=== PATIENT | male | born 1965 | race Two or more races ===

== ENCOUNTER 2020-07-22 10:37 | Emergency (ER) | payer BC, OTHER ==
[~2020-07-22] VITALS: Ht 180.3 cm; Wt 99.8 kg
[2020-07-22 12:27] LABS: Urine Bacteria NONE SEEN /hpf (None Seen); Urine Blood Negative /uL (Negative); Urine Specific Gravity 1.046 (1.001-1.035); Urine WBC 1 /hpf (0 - 3)
[2020-07-22 12:31] LABS: Basophils # (auto) 0 10 ^3/uL (0-0.2); Basophils % (auto) 0.4 % (0.0-2.0); Eosinophils # (auto) 0 10 ^3/uL (0-0.8); Eosinophils % (auto) 0.7 % (0.0-7.0); Hematocrit 49.4 % (41.0-53.0); Hemoglobin 16.6 g/dL (13.5-17.5); Lymphocytes # (auto) 1.7 10 ^3/uL (0.4-5.4); Lymphocytes % (auto) 25.2 % (10.0-50.0); Mean Corpuscular Hemoglobin 31.1 pg (28.0-32.0); Mean Corpuscular Hgb Conc. 33.6 g/dL (32.0-36.0); Mean Corpuscular Volume 92.6 fL (80.0-100.0); Monocytes # (auto) 0.5 10 ^3/uL (0-1.3); Monocytes % (auto) 6.9 % (0.0-12.0); Neutrophils # (auto) 4.4 10 ^3/uL (1.6-8.6); Neutrophils % (auto) 66.8 % (37.0-80.0); Nucleated Red Blood Cells % 0.1 %; Platelet Count (auto) 164 10^3/uL (140-450); Red Blood Cells 5.33 10^6/uL (4.5-5.90); Red Cell Distribution Width 13.5 % (11.8-14.3); White Blood Cell 6.7 10^3/uL (4.4-10.8)
[2020-07-22 12:35] LABS: Albumin 4.2 g/dL (3.4-5.0); Calcium 9.4 mg/dL (8.5-10.1); Potassium 4.6 mmol/L (3.5-5.1)
[2020-07-22 12:39] LABS: Bilirubin, Total 0.8 mg/dL (0.2-1.0); Total Protein 8.5 g/dL (6.4-8.2)
[2020-07-22 13:20] VITALS: BP 145/86
[2020-07-22] MEDS ORDERED: MECLIZINE HCL 25 MG TAB PO ONE (13:45)
== END 2020-07-22 14:00 | disposition home or self-care (01) ==
LOC: ER 10:37
DX: R42 Dizziness and giddiness (principal); R55 Syncope and collapse; G23.8 Other specified degenerative diseases of basal ganglia; E11.9 Type 2 diabetes mellitus without complications; I10 Essential (primary) hypertension
CPT/HCPCS: 36415; 70450; 80053; 81001; 82962; 84443; 85025; 93005; 99285; J8597

== ENCOUNTER 2021-06-17 07:55 | Inpatient (IN) | payer BC ==
[~2021-06-17] VITALS: Ht 180.3 cm; Wt 94.9 kg
[2021-06-17] VITALS (7 sets, daily range): BP systolic 114–126; BP diastolic 65–80
[2021-06-17] MEDS ORDERED: CHOLECALCIFEROL (VITD3) 2,000 UNIT CAP/TAB PO ONE (08:15)
[2021-06-17] MEDS ORDERED: ACETAMINOPHEN 500 MG TAB PO ONE (08:15)
[2021-06-17] MEDS ORDERED: ZINC SULFATE 220mg CAP or TAB PO ONE (08:15)
[2021-06-17] MEDS ORDERED: methylPREDNISolone SOD SUCC 125 MG/2 ML VL IV ONE (08:15)
[2021-06-17] MEDS ORDERED: ASCORBIC ACID 500 MG TAB PO ONE (08:15)
[2021-06-17] MEDS ORDERED: AZITHROMYCIN 500MG/ 250ML 250 ML IV ONE (08:30)
[2021-06-17 08:37] LABS: Basophils # (auto) 0 10 ^3/uL (0-0.2); Basophils % (auto) 0.5 % (0.0-2.0); Eosinophils # (auto) 0 10 ^3/uL (0-0.8); Eosinophils % (auto) 0.1 % (0.0-7.0); Hematocrit 41.5 % (41.0-53.0); Hemoglobin 14.6 g/dL (13.5-17.5); Lymphocytes # (auto) 1.1 10 ^3/uL (0.4-5.4); Lymphocytes % (auto) 24.4 % (10.0-50.0); Mean Corpuscular Hemoglobin 31.9 pg (28.0-32.0); Mean Corpuscular Hgb Conc. 35.2 g/dL (32.0-36.0); Mean Corpuscular Volume 90.8 fL (80.0-100.0); Monocytes # (auto) 0.4 10 ^3/uL (0-1.3); Monocytes % (auto) 7.7 % (0.0-12.0); Neutrophils # (auto) 3.1 10 ^3/uL (1.6-8.6); Neutrophils % (auto) 67.3 % (37.0-80.0); Nucleated Red Blood Cells % 0.2 %; Red Blood Cells 4.58 10^6/uL (4.5-5.90); Red Cell Distribution Width 13.3 % (11.8-14.3); White Blood Cell 4.6 10^3/uL (4.4-10.8)
[2021-06-17 09:01] LABS: Albumin 3.6 g/dL (3.4-5.0); BUN/Creatinine Ratio 16.7; Calcium 8.3 mg/dL (8.5-10.1); Potassium 3.8 mmol/L (3.5-5.1)
[2021-06-17 09:04] LABS: Bilirubin, Total 0.8 mg/dL (0.2-1.0); Total Protein 7.9 g/dL (6.4-8.2)
[2021-06-17] MEDS ORDERED: IOHEXOL 350 MG/ML 100ML IJ ONE (09:04)
[2021-06-17 09:06] LABS: Lactic Acid w/Reflex 2.1 mmol/L (0.4-2.0)
[2021-06-17] MEDS ORDERED: ACETAMINOPHEN 500 MG TAB PO PRN (11:30)
[2021-06-17] MEDS ORDERED: NITROGLYCERIN 0.4 MG SL TAB SL PRN (11:30)
[2021-06-17] MEDS ORDERED: MORPHINE SULFATE INJECTION 2 MG/ML SYRG IV PRN (11:30)
[2021-06-17] MEDS ORDERED: hydrALAZINE HCL 20 MG/ML VL IV PRN (11:45)
[2021-06-17] MEDS ORDERED: KETOROLAC TROMETH 30 MG/ML 1ML VIAL IV ONE (11:45)
[2021-06-17 12:35] LABS: Thyroid Stimulating Hormone 1.12 uIU/mL (0.358-3.74)
[2021-06-17] MEDS ORDERED: SITA50TA PO (15:14)
[2021-06-17] MEDS ORDERED: EMPA1TAB PO (15:14)
[2021-06-17] MEDS ORDERED: ATEN-60 PO (15:14)
[2021-06-17] MEDS ORDERED: LOSA25TA38 PO (15:14)
[2021-06-17] MEDS: IVERMECTIN 3 MG TAB PO SCH (15:59)
[2021-06-17] MEDS: BUDESONIDE (INHALATION) 180 MCG IH IN SCH (19:36)
[2021-06-17] MEDS: ALBUTEROL SULF HFA 90MCG INH 200DOSE IN PRN (19:36)
[2021-06-17] MEDS: ENOXAPARIN SOD 40 MG/0.4 ML SYRINGE SC SCH (21:25)
[2021-06-18 05:00] VITALS: BP 132/85
[2021-06-18 07:24] LABS: Basophils # (auto) 0 10 ^3/uL (0-0.2); Basophils % (auto) 0.2 % (0.0-2.0); Eosinophils # (auto) 0 10 ^3/uL (0-0.8); Hematocrit 41.6 % (41.0-53.0); Hemoglobin 14.9 g/dL (13.5-17.5); Lymphocytes # (auto) 1.2 10 ^3/uL (0.4-5.4); Lymphocytes % (auto) 18.6 % (10.0-50.0); Mean Corpuscular Hemoglobin 32.3 pg (28.0-32.0); Mean Corpuscular Hgb Conc. 35.7 g/dL (32.0-36.0); Mean Corpuscular Volume 90.2 fL (80.0-100.0); Monocytes # (auto) 0.5 10 ^3/uL (0-1.3); Monocytes % (auto) 6.8 % (0.0-12.0); Neutrophils # (auto) 4.9 10 ^3/uL (1.6-8.6); Neutrophils % (auto) 74.4 % (37.0-80.0); Nucleated Red Blood Cells % 0.1 %; Red Blood Cells 4.61 10^6/uL (4.5-5.90); Red Cell Distribution Width 13.3 % (11.8-14.3); White Blood Cell 6.7 10^3/uL (4.4-10.8)
[2021-06-18 07:27] LABS: Albumin 3.2 g/dL (3.4-5.0); BUN/Creatinine Ratio 31.9; Calcium 8.6 mg/dL (8.5-10.1); Potassium 4.4 mmol/L (3.5-5.1)
[2021-06-18 07:31] LABS: Total Protein 8.1 g/dL (6.4-8.2)
[2021-06-18] MEDS: ALBUTEROL SULF HFA 90MCG INH 200DOSE IN PRN ×2 (07:42→20:22)
[2021-06-18] MEDS: BUDESONIDE (INHALATION) 180 MCG IH IN SCH ×2 (07:42→20:22)
[2021-06-18 09:00] VITALS: BP 132/74
[2021-06-18] MEDS ORDERED: AZITHROMYCIN 500MG/ 250ML 250 ML IV SCH (10:00)
[2021-06-18] MEDS: DexAMETHasone SOD PHOS 10MG/1ML VIAL INJ IV SCH (10:39)
[2021-06-18] MEDS: ZINC SULFATE 220mg CAP or TAB PO SCH (10:40)
[2021-06-18] MEDS: ASCORBIC ACID 1,000 MG TAB PO SCH (10:40)
[2021-06-18] MEDS: ENOXAPARIN SOD 40 MG/0.4 ML SYRINGE SC SCH ×2 (10:40→21:48)
[2021-06-18] MEDS: CHOLECALCIFEROL (VITD3) 2,000 UNIT CAP/TAB PO SCH (10:40)
[2021-06-18] MEDS: IVERMECTIN 3 MG TAB PO SCH (10:40)
[2021-06-18 13:00] VITALS: BP 117/72
[2021-06-18] MEDS ORDERED: DEXTROSE (50%) 50ML SYRG IV PRN (13:15)
[2021-06-18] MEDS ORDERED: FUROSEMIDE 20 MG/2 ML VIAL IV ONE (13:15)
[2021-06-18] MEDS: DOXYCYCLINE 100MG/250ML 250 ML IV SCH (15:01)
[2021-06-18] MEDS: ACETAMINOPHEN 500 MG TAB PO PRN ×2 (15:02→23:58)
[2021-06-18] MEDS: ACCU-CHEK COMFORT CURVE STRIP VI SCH ×2 (16:36→21:47)
[2021-06-18] MEDS: InsuLIN REG 1unit/0.01ml Soln (100units/ml) SC SCH ×2 (16:38→21:49)
[2021-06-18 17:00] VITALS: BP 122/72
[2021-06-18 21:00] VITALS: BP 122/73
[2021-06-18] MEDS: INSULIN LANTUS (GLARGINE) 1 /0.01ml (100units/ml) SC SCH (21:48)
[2021-06-19] MEDS: DOXYCYCLINE 100MG/250ML 250 ML IV SCH ×3 (01:52→21:20)
[2021-06-19 05:00] VITALS: BP 116/74
[2021-06-19] MEDS: ACCU-CHEK COMFORT CURVE STRIP VI SCH ×4 (06:24→21:22)
[2021-06-19] MEDS: InsuLIN REG 1unit/0.01ml Soln (100units/ml) SC SCH ×4 (06:26→21:24)
[2021-06-19 06:30] LABS: Potassium 3.8 mmol/L (3.5-5.1)
[2021-06-19] MEDS: ACETAMINOPHEN 500 MG TAB PO PRN ×3 (06:33→21:41)
[2021-06-19 06:43] LABS: Albumin 3.2 g/dL (3.4-5.0); BUN/Creatinine Ratio 34.1; Bilirubin, Total 0.9 mg/dL (0.2-1.0); CRP High Sensitivity 3.2 mg/dL (< 0.3); Calcium 8.5 mg/dL (8.5-10.1); Magnesium 2.5 mg/dL (1.6-2.6); Total Protein 7.4 g/dL (6.4-8.2)
[2021-06-19] MEDS: BUDESONIDE (INHALATION) 180 MCG IH IN SCH ×2 (07:56→21:40)
[2021-06-19] MEDS: ALBUTEROL SULF HFA 90MCG INH 200DOSE IN PRN ×3 (07:56→21:39)
[2021-06-19 08:53] VITALS: BP 137/74
[2021-06-19] MEDS ORDERED: REMDESIVIR PER PHARMACY 0 ML IV SCH ×2 (09:30→11:30)
[2021-06-19] MEDS: FUROSEMIDE 20 MG/2 ML VIAL IV SCH (10:26)
[2021-06-19] MEDS: DexAMETHasone SOD PHOS 10MG/1ML VIAL INJ IV SCH (10:26)
[2021-06-19] MEDS: IVERMECTIN 3 MG TAB PO SCH (10:27)
[2021-06-19] MEDS: ASCORBIC ACID 1,000 MG TAB PO SCH (10:27)
[2021-06-19] MEDS: ZINC SULFATE 220mg CAP or TAB PO SCH (10:27)
[2021-06-19] MEDS: CHOLECALCIFEROL (VITD3) 2,000 UNIT CAP/TAB PO SCH (10:27)
[2021-06-19] MEDS: ENOXAPARIN SOD 40 MG/0.4 ML SYRINGE SC SCH ×2 (10:29→21:22)
[2021-06-19 12:55] VITALS: BP 129/80
[2021-06-19] MEDS ORDERED: REMDESIVIR 200 MG in NS 210ml LOADING DOSE ADULT IV ONE (13:00)
[2021-06-19 17:00] VITALS: BP 117/72
[2021-06-19] MEDS ORDERED: ALPR0.5T PO (19:19)
[2021-06-19] MEDS: INSULIN LANTUS (GLARGINE) 1 /0.01ml (100units/ml) SC SCH (21:21)
[2021-06-19] MEDS: guaiFENesin-DM 100/10mg/5ml SYR PO PRN (21:24)
[2021-06-19 22:00] VITALS: BP 117/73
[2021-06-20 05:00] VITALS: BP 125/70
[2021-06-20] MEDS: guaiFENesin-DM 100/10mg/5ml SYR PO PRN ×4 (05:50→21:11)
[2021-06-20] MEDS: InsuLIN REG 1unit/0.01ml Soln (100units/ml) SC SCH ×4 (06:00→21:20)
[2021-06-20] MEDS: ACCU-CHEK COMFORT CURVE STRIP VI SCH ×4 (06:00→21:18)
[2021-06-20] MEDS: BUDESONIDE (INHALATION) 180 MCG IH IN SCH ×2 (07:24→22:32)
[2021-06-20] MEDS: ALBUTEROL SULF HFA 90MCG INH 200DOSE IN PRN ×2 (07:24→22:33)
[2021-06-20 08:50] VITALS: BP 129/78
[2021-06-20] MEDS: FUROSEMIDE 20 MG/2 ML VIAL IV SCH (08:57)
[2021-06-20] MEDS: DexAMETHasone SOD PHOS 10MG/1ML VIAL INJ IV SCH (08:57)
[2021-06-20] MEDS: ENOXAPARIN SOD 40 MG/0.4 ML SYRINGE SC SCH ×2 (08:58→21:18)
[2021-06-20] MEDS: ZINC SULFATE 220mg CAP or TAB PO SCH (08:58)
[2021-06-20] MEDS: ASCORBIC ACID 1,000 MG TAB PO SCH (08:58)
[2021-06-20] MEDS: CHOLECALCIFEROL (VITD3) 2,000 UNIT CAP/TAB PO SCH (08:58)
[2021-06-20] MEDS: DOXYCYCLINE 100MG/250ML 250 ML IV SCH ×2 (10:15→21:17)
[2021-06-20] MEDS: IVERMECTIN 3 MG TAB PO SCH (10:15)
[2021-06-20] MEDS: POTASSIUM CHL 10 Meq TABLET PO SCH (11:34)
[2021-06-20] MEDS: TOCILIZUMAB 400 MG in SODIUM CHL 0.9% 80 ML IV SCH (12:48)
[2021-06-20 13:00] VITALS: BP 140/76
[2021-06-20 13:36] VITALS: BP 140/76
[2021-06-20] MEDS: REMDESIVIR 100mg 100 MG in SODIUM CHL 0.9% 230 ML IV SCH (15:01)
[2021-06-20 17:00] VITALS: BP 130/75
[2021-06-20] MEDS: INSULIN LANTUS (GLARGINE) 1 /0.01ml (100units/ml) SC SCH (21:19)
[2021-06-20 22:00] VITALS: BP 125/77
[2021-06-21 05:00] VITALS: BP 128/74
[2021-06-21] MEDS: ACCU-CHEK COMFORT CURVE STRIP VI SCH ×4 (06:24→21:45)
[2021-06-21] MEDS: InsuLIN REG 1unit/0.01ml Soln (100units/ml) SC SCH ×4 (06:25→22:08)
[2021-06-21] MEDS: guaiFENesin-DM 100/10mg/5ml SYR PO PRN ×5 (06:37→22:12)
[2021-06-21 07:06] LABS: Potassium 3.6 mmol/L (3.5-5.1)
[2021-06-21 07:14] LABS: Albumin 2.8 g/dL (3.4-5.0); BUN/Creatinine Ratio 52.2; Bilirubin, Total 1.2 mg/dL (0.2-1.0); Calcium 8.9 mg/dL (8.5-10.1); Total Protein 7.7 g/dL (6.4-8.2)
[2021-06-21] MEDS: ALBUTEROL SULF HFA 90MCG INH 200DOSE IN PRN ×2 (07:25→22:01)
[2021-06-21] MEDS: BUDESONIDE (INHALATION) 180 MCG IH IN SCH ×2 (07:25→22:01)
[2021-06-21 08:15] VITALS: BP 121/78
[2021-06-21 09:00] VITALS: BP 121/78
[2021-06-21] MEDS: ENOXAPARIN SOD 40 MG/0.4 ML SYRINGE SC SCH ×2 (10:00→21:56)
[2021-06-21] MEDS: DOXYCYCLINE 100MG/250ML 250 ML IV SCH ×2 (10:03→21:55)
[2021-06-21] MEDS: ZINC SULFATE 220mg CAP or TAB PO SCH (10:03)
[2021-06-21] MEDS: IVERMECTIN 3 MG TAB PO SCH (10:03)
[2021-06-21] MEDS: POTASSIUM CHL 10 Meq TABLET PO SCH (10:03)
[2021-06-21] MEDS: DexAMETHasone SOD PHOS 10MG/1ML VIAL INJ IV SCH (10:03)
[2021-06-21] MEDS: FUROSEMIDE 20 MG/2 ML VIAL IV SCH (10:03)
[2021-06-21] MEDS: ASCORBIC ACID 1,000 MG TAB PO SCH (10:04)
[2021-06-21] MEDS: CHOLECALCIFEROL (VITD3) 2,000 UNIT CAP/TAB PO SCH (10:04)
[2021-06-21] MEDS: TOCILIZUMAB 400 MG in SODIUM CHL 0.9% 80 ML IV SCH (11:58)
[2021-06-21 12:47] VITALS: BP 119/73
[2021-06-21] MEDS: REMDESIVIR 100mg 100 MG in SODIUM CHL 0.9% 230 ML IV SCH (15:00)
[2021-06-21 16:40] VITALS: BP 118/76
[2021-06-21 22:00] VITALS: BP 116/75
[2021-06-21] MEDS: INSULIN LANTUS (GLARGINE) 1 /0.01ml (100units/ml) SC SCH (22:07)
[2021-06-22 05:00] VITALS: BP 138/91
[2021-06-22] MEDS: InsuLIN REG 1unit/0.01ml Soln (100units/ml) SC SCH ×4 (06:39→22:17)
[2021-06-22] MEDS: ACCU-CHEK COMFORT CURVE STRIP VI SCH ×4 (06:41→22:19)
[2021-06-22 06:49] LABS: Potassium 3.4 mmol/L (3.5-5.1)
[2021-06-22 06:55] LABS: BUN/Creatinine Ratio 48.2; Bilirubin, Total 1.3 mg/dL (0.2-1.0); Total Protein 7.5 g/dL (6.4-8.2)
[2021-06-22 08:00] VITALS: BP 127/75
[2021-06-22 08:43] VITALS: BP 127/75
[2021-06-22] MEDS: ALBUTEROL SULF HFA 90MCG INH 200DOSE IN PRN ×2 (09:10→23:08)
[2021-06-22] MEDS: BUDESONIDE (INHALATION) 180 MCG IH IN SCH ×2 (09:10→23:08)
[2021-06-22] MEDS: ASCORBIC ACID 1,000 MG TAB PO SCH (10:13)
[2021-06-22] MEDS: DOXYCYCLINE 100MG/250ML 250 ML IV SCH ×2 (10:13→22:09)
[2021-06-22] MEDS: POTASSIUM CHL 10 Meq TABLET PO SCH (10:14)
[2021-06-22] MEDS ORDERED: POTASSIUM CHL 20 Meq TABLET PO ONE (10:15)
[2021-06-22] MEDS: ZINC SULFATE 220mg CAP or TAB PO SCH (10:15)
[2021-06-22] MEDS: ENOXAPARIN SOD 40 MG/0.4 ML SYRINGE SC SCH ×2 (10:16→22:09)
[2021-06-22] MEDS: DexAMETHasone SOD PHOS 10MG/1ML VIAL INJ IV SCH (10:16)
[2021-06-22] MEDS: FUROSEMIDE 20 MG/2 ML VIAL IV SCH (10:17)
[2021-06-22 13:00] VITALS: BP 121/75
[2021-06-22] MEDS: REMDESIVIR 100mg 100 MG in SODIUM CHL 0.9% 230 ML IV SCH (15:28)
[2021-06-22] MEDS: CHOLECALCIFEROL (VITD3) 2,000 UNIT CAP/TAB PO SCH (15:29)
[2021-06-22 16:45] VITALS: BP 120/73
[2021-06-22 22:00] VITALS: BP 119/80
[2021-06-22] MEDS: INSULIN LANTUS (GLARGINE) 1 /0.01ml (100units/ml) SC SCH (22:17)
[2021-06-22] MEDS: ALPRAZolam 0.5 MG TAB PO PRN (22:20)
[2021-06-23 05:00] VITALS: BP 122/66
[2021-06-23] MEDS: ACCU-CHEK COMFORT CURVE STRIP VI SCH ×4 (06:51→21:55)
[2021-06-23] MEDS: InsuLIN REG 1unit/0.01ml Soln (100units/ml) SC SCH ×4 (06:55→21:51)
[2021-06-23 07:21] LABS: Basophils # (auto) 0 10 ^3/uL (0-0.2); Basophils % (auto) 0.1 % (0.0-2.0); Eosinophils # (auto) 0 10 ^3/uL (0-0.8); Hematocrit 40.5 % (41.0-53.0); Hemoglobin 14.6 g/dL (13.5-17.5); Lymphocytes # (auto) 1.6 10 ^3/uL (0.4-5.4); Lymphocytes % (auto) 22.5 % (10.0-50.0); Mean Corpuscular Hemoglobin 32.4 pg (28.0-32.0); Mean Corpuscular Hgb Conc. 36.1 g/dL (32.0-36.0); Mean Corpuscular Volume 89.7 fL (80.0-100.0); Monocytes # (auto) 0.6 10 ^3/uL (0-1.3); Monocytes % (auto) 8.9 % (0.0-12.0); Neutrophils # (auto) 4.9 10 ^3/uL (1.6-8.6); Neutrophils % (auto) 68.5 % (37.0-80.0); Red Blood Cells 4.52 10^6/uL (4.5-5.90); Red Cell Distribution Width 13.6 % (11.8-14.3); White Blood Cell 7.2 10^3/uL (4.4-10.8)
[2021-06-23 07:27] LABS: INR 1.07 (0.9-1.15)
[2021-06-23 07:32] LABS: Albumin 2.8 g/dL (3.4-5.0); CRP High Sensitivity 0.73 mg/dL (< 0.3); Calcium 8.9 mg/dL (8.5-10.1); Magnesium 2.3 mg/dL (1.6-2.6); Potassium 3.4 mmol/L (3.5-5.1)
[2021-06-23] MEDS: BUDESONIDE (INHALATION) 180 MCG IH IN SCH ×2 (07:32→19:23)
[2021-06-23] MEDS: ALBUTEROL SULF HFA 90MCG INH 200DOSE IN PRN ×2 (07:32→19:24)
[2021-06-23 07:35] LABS: BUN/Creatinine Ratio 45.1; Bilirubin, Total 1.2 mg/dL (0.2-1.0); Total Protein 7.2 g/dL (6.4-8.2)
[2021-06-23 09:27] VITALS: BP 125/71
[2021-06-23 09:28] VITALS: BP 125/71
[2021-06-23] MEDS: ENOXAPARIN SOD 40 MG/0.4 ML SYRINGE SC SCH ×2 (09:59→21:33)
[2021-06-23] MEDS: CHOLECALCIFEROL (VITD3) 2,000 UNIT CAP/TAB PO SCH (10:00)
[2021-06-23] MEDS: ZINC SULFATE 220mg CAP or TAB PO SCH (10:00)
[2021-06-23] MEDS: FUROSEMIDE 40 MG/4 ML VIAL IV SCH (10:02)
[2021-06-23] MEDS: DexAMETHasone SOD PHOS 10MG/1ML VIAL INJ IV SCH (10:03)
[2021-06-23] MEDS: DOXYCYCLINE 100MG/250ML 250 ML IV SCH ×2 (10:03→21:33)
[2021-06-23] MEDS: ASCORBIC ACID 1,000 MG TAB PO SCH (10:03)
[2021-06-23] MEDS: POTASSIUM CHL 10 Meq TABLET PO SCH (10:03)
[2021-06-23 13:00] VITALS: BP 117/68
[2021-06-23 13:32] LABS: Nucleated Red Blood Cells % 0.2 %
[2021-06-23] MEDS: REMDESIVIR 100mg 100 MG in SODIUM CHL 0.9% 230 ML IV SCH (14:56)
[2021-06-23 20:00] VITALS: BP 129/84
[2021-06-23] MEDS: INSULIN LANTUS (GLARGINE) 1 /0.01ml (100units/ml) SC SCH (21:51)
[2021-06-23 22:00] VITALS: BP 129/84
[2021-06-24 05:00] VITALS: BP 136/80
[2021-06-24] MEDS: InsuLIN REG 1unit/0.01ml Soln (100units/ml) SC SCH ×4 (07:00→23:25)
[2021-06-24] MEDS: ALBUTEROL SULF HFA 90MCG INH 200DOSE IN PRN ×2 (07:02→22:20)
[2021-06-24] MEDS: BUDESONIDE (INHALATION) 180 MCG IH IN SCH ×2 (07:03→22:20)
[2021-06-24] MEDS: ACCU-CHEK COMFORT CURVE STRIP VI SCH ×4 (07:10→22:08)
[2021-06-24] MEDS: FUROSEMIDE 40 MG/4 ML VIAL IV SCH (08:47)
[2021-06-24] MEDS: DexAMETHasone SOD PHOS 10MG/1ML VIAL INJ IV SCH (08:47)
[2021-06-24] MEDS: ENOXAPARIN SOD 40 MG/0.4 ML SYRINGE SC SCH ×2 (08:48→21:59)
[2021-06-24] MEDS: DOXYCYCLINE 100MG/250ML 250 ML IV SCH ×2 (08:48→21:59)
[2021-06-24] MEDS: POTASSIUM CHL 10 Meq TABLET PO SCH (08:48)
[2021-06-24] MEDS: CHOLECALCIFEROL (VITD3) 2,000 UNIT CAP/TAB PO SCH (08:49)
[2021-06-24] MEDS: ZINC SULFATE 220mg CAP or TAB PO SCH (08:49)
[2021-06-24 09:06] VITALS: BP 124/71
[2021-06-24] MEDS: ALPRAZolam 0.5 MG TAB PO PRN ×2 (10:09→22:01)
[2021-06-24] MEDS: ASCORBIC ACID 1,000 MG TAB PO SCH (11:05)
[2021-06-24 12:24] VITALS: BP 110/71
[2021-06-24 17:20] VITALS: BP 111/71
[2021-06-24 20:00] VITALS: BP 119/65
[2021-06-24 22:00] VITALS: BP 119/65
[2021-06-24] MEDS: INSULIN LANTUS (GLARGINE) 1 /0.01ml (100units/ml) SC SCH (23:24)
[2021-06-25 05:00] VITALS: BP 120/69
[2021-06-25] MEDS: ALBUTEROL SULF HFA 90MCG INH 200DOSE IN PRN ×2 (05:33→19:46)
[2021-06-25] MEDS: BUDESONIDE (INHALATION) 180 MCG IH IN SCH ×2 (05:33→19:46)
[2021-06-25 06:04] LABS: Basophils # (auto) 0 10 ^3/uL (0-0.2); Basophils % (auto) 0.1 % (0.0-2.0); Eosinophils # (auto) 0.2 10 ^3/uL (0-0.8); Eosinophils % (auto) 1.7 % (0.0-7.0); Hematocrit 44.5 % (41.0-53.0); Hemoglobin 15.7 g/dL (13.5-17.5); Lymphocytes # (auto) 2.4 10 ^3/uL (0.4-5.4); Lymphocytes % (auto) 18.6 % (10.0-50.0); Mean Corpuscular Hemoglobin 31.8 pg (28.0-32.0); Mean Corpuscular Hgb Conc. 35.3 g/dL (32.0-36.0); Mean Corpuscular Volume 90.3 fL (80.0-100.0); Monocytes # (auto) 0.5 10 ^3/uL (0-1.3); Monocytes % (auto) 4.1 % (0.0-12.0); Neutrophils # (auto) 9.6 10 ^3/uL (1.6-8.6); Neutrophils % (auto) 75.5 % (37.0-80.0); Nucleated Red Blood Cells % 0.1 %; Red Blood Cells 4.92 10^6/uL (4.5-5.90); Red Cell Distribution Width 13.5 % (11.8-14.3); White Blood Cell 12.7 10^3/uL (4.4-10.8)
[2021-06-25] MEDS: ACCU-CHEK COMFORT CURVE STRIP VI SCH ×4 (06:39→21:25)
[2021-06-25] MEDS: InsuLIN REG 1unit/0.01ml Soln (100units/ml) SC SCH ×4 (06:39→21:38)
[2021-06-25 08:34] VITALS: BP 126/72
[2021-06-25] MEDS: ASCORBIC ACID 1,000 MG TAB PO SCH (09:06)
[2021-06-25] MEDS: ZINC SULFATE 220mg CAP or TAB PO SCH (09:06)
[2021-06-25] MEDS: ENOXAPARIN SOD 40 MG/0.4 ML SYRINGE SC SCH ×2 (09:06→21:25)
[2021-06-25] MEDS: CHOLECALCIFEROL (VITD3) 2,000 UNIT CAP/TAB PO SCH (09:07)
[2021-06-25] MEDS: DexAMETHasone SOD PHOS 10MG/1ML VIAL INJ IV SCH ×2 (09:07→21:24)
[2021-06-25] MEDS: POTASSIUM CHL 10 Meq TABLET PO SCH (09:07)
[2021-06-25] MEDS: DOXYCYCLINE 100MG/250ML 250 ML IV SCH ×2 (09:07→21:24)
[2021-06-25] MEDS: FUROSEMIDE 40 MG/4 ML VIAL IV SCH (10:20)
[2021-06-25] MEDS ORDERED: POTASSIUM CHL 20 Meq TABLET PO ONE (12:30)
[2021-06-25 13:00] VITALS: BP 108/53
[2021-06-25] MEDS: ALPRAZolam 0.5 MG TAB PO PRN (16:25)
[2021-06-25 17:00] VITALS: BP 113/44
[2021-06-25] MEDS: INSULIN LANTUS (GLARGINE) 1 /0.01ml (100units/ml) SC SCH (21:39)
[2021-06-25 22:00] VITALS: BP 116/87
[2021-06-26 05:00] VITALS: BP 119/79
[2021-06-26] MEDS: ACCU-CHEK COMFORT CURVE STRIP VI SCH ×4 (06:20→22:19)
[2021-06-26] MEDS: InsuLIN REG 1unit/0.01ml Soln (100units/ml) SC SCH ×4 (06:25→22:18)
[2021-06-26 06:40] LABS: Basophils # (auto) 0 10 ^3/uL (0-0.2); Basophils % (auto) 0.1 % (0.0-2.0); Eosinophils # (auto) 0.1 10 ^3/uL (0-0.8); Eosinophils % (auto) 0.7 % (0.0-7.0); Hematocrit 46.2 % (41.0-53.0); Hemoglobin 16.3 g/dL (13.5-17.5); Lymphocytes # (auto) 0.9 10 ^3/uL (0.4-5.4); Lymphocytes % (auto) 7.3 % (10.0-50.0); Mean Corpuscular Hemoglobin 31.7 pg (28.0-32.0); Mean Corpuscular Hgb Conc. 35.2 g/dL (32.0-36.0); Mean Corpuscular Volume 90.1 fL (80.0-100.0); Monocytes # (auto) 0.4 10 ^3/uL (0-1.3); Monocytes % (auto) 2.9 % (0.0-12.0); Neutrophils # (auto) 11.4 10 ^3/uL (1.6-8.6); Nucleated Red Blood Cells % 0.3 %; Red Blood Cells 5.12 10^6/uL (4.5-5.90); Red Cell Distribution Width 13.7 % (11.8-14.3); White Blood Cell 12.8 10^3/uL (4.4-10.8)
[2021-06-26 06:49] LABS: INR 1.09 (0.9-1.15)
[2021-06-26 06:58] LABS: Magnesium 2.5 mg/dL (1.6-2.6); Potassium 4.4 mmol/L (3.5-5.1)
[2021-06-26 07:03] LABS: BUN/Creatinine Ratio 35.1; Bilirubin, Total 1.3 mg/dL (0.2-1.0); CRP High Sensitivity 0.15 mg/dL (< 0.3); Total Protein 7.3 g/dL (6.4-8.2)
[2021-06-26] MEDS: BUDESONIDE (INHALATION) 180 MCG IH IN SCH ×2 (07:23→19:39)
[2021-06-26] MEDS: ALBUTEROL SULF HFA 90MCG INH 200DOSE IN PRN ×2 (07:24→19:39)
[2021-06-26 09:00] VITALS: BP 98/58
[2021-06-26 09:38] VITALS: BP 98/58
[2021-06-26] MEDS: levoFLOXacin 750MG 150 ML IV SCH (10:00)
[2021-06-26] MEDS: ENOXAPARIN SOD 40 MG/0.4 ML SYRINGE SC SCH ×2 (10:00→22:18)
[2021-06-26] MEDS: POTASSIUM CHL 10 Meq TABLET PO SCH (10:00)
[2021-06-26] MEDS: ASCORBIC ACID 1,000 MG TAB PO SCH (10:00)
[2021-06-26] MEDS: DexAMETHasone SOD PHOS 10MG/1ML VIAL INJ IV SCH ×2 (10:00→22:17)
[2021-06-26] MEDS: FUROSEMIDE 40 MG/4 ML VIAL IV SCH (10:00)
[2021-06-26] MEDS: ZINC SULFATE 220mg CAP or TAB PO SCH (10:00)
[2021-06-26] MEDS: CHOLECALCIFEROL (VITD3) 2,000 UNIT CAP/TAB PO SCH (10:00)
[2021-06-26 12:53] VITALS: BP 113/62
[2021-06-26 17:00] VITALS: BP 115/64
[2021-06-26 22:00] VITALS: BP 113/76
[2021-06-26] MEDS: INSULIN LANTUS (GLARGINE) 1 /0.01ml (100units/ml) SC SCH (22:18)
[2021-06-27 05:00] VITALS: BP 108/73
[2021-06-27] MEDS: ACCU-CHEK COMFORT CURVE STRIP VI SCH ×4 (06:38→22:21)
[2021-06-27] MEDS: InsuLIN REG 1unit/0.01ml Soln (100units/ml) SC SCH ×4 (06:41→22:26)
[2021-06-27 08:43] VITALS: BP 108/59
[2021-06-27] MEDS: FUROSEMIDE 40 MG/4 ML VIAL IV SCH (09:46)
[2021-06-27] MEDS: ENOXAPARIN SOD 40 MG/0.4 ML SYRINGE SC SCH ×2 (09:47→22:21)
[2021-06-27] MEDS: levoFLOXacin 750MG 150 ML IV SCH (09:47)
[2021-06-27] MEDS: DexAMETHasone SOD PHOS 10MG/1ML VIAL INJ IV SCH ×2 (09:47→22:20)
[2021-06-27] MEDS: CHOLECALCIFEROL (VITD3) 2,000 UNIT CAP/TAB PO SCH (09:48)
[2021-06-27] MEDS: ASCORBIC ACID 1,000 MG TAB PO SCH (09:48)
[2021-06-27] MEDS: ALBUTEROL SULF HFA 90MCG INH 200DOSE IN PRN ×2 (09:48→22:49)
[2021-06-27] MEDS: BUDESONIDE (INHALATION) 180 MCG IH IN SCH ×2 (09:48→22:49)
[2021-06-27] MEDS: ZINC SULFATE 220mg CAP or TAB PO SCH (09:48)
[2021-06-27] MEDS: POTASSIUM CHL 10 Meq TABLET PO SCH (09:49)
[2021-06-27 12:50] VITALS: BP 99/53
[2021-06-27 17:00] VITALS: BP 105/71
[2021-06-27] MEDS: ALPRAZolam 0.5 MG TAB PO PRN (19:36)
[2021-06-27 22:00] VITALS: BP 103/67
[2021-06-27] MEDS: INSULIN LANTUS (GLARGINE) 1 /0.01ml (100units/ml) SC SCH (22:27)
[2021-06-28 05:00] VITALS: BP 122/82
[2021-06-28 05:28] LABS: Basophils # (auto) 0 10 ^3/uL (0-0.2); Basophils % (auto) 0.2 % (0.0-2.0); Eosinophils # (auto) 0 10 ^3/uL (0-0.8); Eosinophils % (auto) 0.2 % (0.0-7.0); Hematocrit 45.8 % (41.0-53.0); Lymphocytes # (auto) 0.9 10 ^3/uL (0.4-5.4); Lymphocytes % (auto) 7.6 % (10.0-50.0); Mean Corpuscular Hemoglobin 31.7 pg (28.0-32.0); Mean Corpuscular Hgb Conc. 34.9 g/dL (32.0-36.0); Mean Corpuscular Volume 90.8 fL (80.0-100.0); Monocytes # (auto) 0.5 10 ^3/uL (0-1.3); Monocytes % (auto) 3.9 % (0.0-12.0); Neutrophils # (auto) 10.9 10 ^3/uL (1.6-8.6); Neutrophils % (auto) 88.1 % (37.0-80.0); Nucleated Red Blood Cells % 0.1 %; Red Blood Cells 5.05 10^6/uL (4.5-5.90); Red Cell Distribution Width 13.7 % (11.8-14.3); White Blood Cell 12.4 10^3/uL (4.4-10.8)
[2021-06-28 05:41] LABS: INR 1.09 (0.9-1.15)
[2021-06-28 05:56] LABS: Albumin 2.9 g/dL (3.4-5.0); BUN/Creatinine Ratio 38.2; Bilirubin, Total 1.3 mg/dL (0.2-1.0); CRP High Sensitivity 0.04 mg/dL (< 0.3); Calcium 9.3 mg/dL (8.5-10.1); Magnesium 2.6 mg/dL (1.6-2.6)
[2021-06-28] MEDS: ACCU-CHEK COMFORT CURVE STRIP VI SCH ×4 (06:44→21:27)
[2021-06-28] MEDS: InsuLIN REG 1unit/0.01ml Soln (100units/ml) SC SCH ×4 (06:47→21:26)
[2021-06-28] MEDS: BUDESONIDE (INHALATION) 180 MCG IH IN SCH ×2 (06:55→22:00)
[2021-06-28] MEDS: ALBUTEROL SULF HFA 90MCG INH 200DOSE IN PRN (06:55)
[2021-06-28 08:12] VITALS: BP 125/69
[2021-06-28] MEDS: DexAMETHasone SOD PHOS 10MG/1ML VIAL INJ IV SCH ×2 (10:26→21:27)
[2021-06-28] MEDS: ZINC SULFATE 220mg CAP or TAB PO SCH (10:28)
[2021-06-28] MEDS: POTASSIUM CHL 10 Meq TABLET PO SCH (10:28)
[2021-06-28] MEDS: FUROSEMIDE 40 MG/4 ML VIAL IV SCH (10:28)
[2021-06-28] MEDS: levoFLOXacin 750MG 150 ML IV SCH (10:28)
[2021-06-28] MEDS: CHOLECALCIFEROL (VITD3) 2,000 UNIT CAP/TAB PO SCH (10:29)
[2021-06-28] MEDS: ENOXAPARIN SOD 40 MG/0.4 ML SYRINGE SC SCH ×2 (10:29→21:27)
[2021-06-28] MEDS: ASCORBIC ACID 1,000 MG TAB PO SCH (10:29)
[2021-06-28 13:00] VITALS: BP 130/76
[2021-06-28] MEDS: ALPRAZolam 0.5 MG TAB PO PRN (13:22)
[2021-06-28 16:50] VITALS: BP 107/62
[2021-06-28] MEDS: INSULIN LANTUS (GLARGINE) 1 /0.01ml (100units/ml) SC SCH (21:26)
[2021-06-28 22:00] VITALS: BP 115/70
[2021-06-29 03:16] VITALS: BP 115/70
[2021-06-29 05:00] VITALS: BP 112/74
[2021-06-29] MEDS: ALPRAZolam 0.5 MG TAB PO PRN ×2 (06:24→19:54)
[2021-06-29] MEDS: ACCU-CHEK COMFORT CURVE STRIP VI SCH ×4 (06:24→21:44)
[2021-06-29] MEDS: InsuLIN REG 1unit/0.01ml Soln (100units/ml) SC SCH ×4 (06:38→23:30)
[2021-06-29] MEDS: ALBUTEROL SULF HFA 90MCG INH 200DOSE IN PRN ×2 (06:44→22:14)
[2021-06-29] MEDS: BUDESONIDE (INHALATION) 180 MCG IH IN SCH ×2 (06:45→22:14)
[2021-06-29 07:12] LABS: Basophils # (auto) 0 10 ^3/uL (0-0.2); Basophils % (auto) 0.1 % (0.0-2.0); Eosinophils # (auto) 0 10 ^3/uL (0-0.8); Eosinophils % (auto) 0.1 % (0.0-7.0); Hematocrit 49.9 % (41.0-53.0); Hemoglobin 17.2 g/dL (13.5-17.5); Lymphocytes % (auto) 13.3 % (10.0-50.0); Mean Corpuscular Hemoglobin 31.4 pg (28.0-32.0); Mean Corpuscular Hgb Conc. 34.4 g/dL (32.0-36.0); Mean Corpuscular Volume 91.2 fL (80.0-100.0); Monocytes # (auto) 0.7 10 ^3/uL (0-1.3); Monocytes % (auto) 4.3 % (0.0-12.0); Neutrophils # (auto) 12.6 10 ^3/uL (1.6-8.6); Neutrophils % (auto) 82.2 % (37.0-80.0); Nucleated Red Blood Cells % 0.1 %; Red Blood Cells 5.47 10^6/uL (4.5-5.90); Red Cell Distribution Width 13.8 % (11.8-14.3); White Blood Cell 15.3 10^3/uL (4.4-10.8)
[2021-06-29] MEDS: DexAMETHasone SOD PHOS 10MG/1ML VIAL INJ IV SCH ×2 (08:41→21:45)
[2021-06-29] MEDS: levoFLOXacin 750MG 150 ML IV SCH (08:43)
[2021-06-29] MEDS: ZINC SULFATE 220mg CAP or TAB PO SCH (08:43)
[2021-06-29] MEDS: FUROSEMIDE 40 MG/4 ML VIAL IV SCH (08:43)
[2021-06-29] MEDS: ENOXAPARIN SOD 40 MG/0.4 ML SYRINGE SC SCH ×2 (08:44→21:44)
[2021-06-29] MEDS: CHOLECALCIFEROL (VITD3) 2,000 UNIT CAP/TAB PO SCH (08:44)
[2021-06-29] MEDS: ASCORBIC ACID 1,000 MG TAB PO SCH (08:44)
[2021-06-29 09:00] VITALS: BP 101/74
[2021-06-29 13:04] VITALS: BP 99/62
[2021-06-29] MEDS ORDERED: MEROPENEM 1GM IVPB 100 ML IV ONE (14:45)
[2021-06-29 16:50] VITALS: BP 116/58
[2021-06-29] MEDS: MEROPENEM 1GM IVPB 100 ML IV SCH (17:14)
[2021-06-29 22:00] VITALS: BP 100/56
[2021-06-29] MEDS: INSULIN LANTUS (GLARGINE) 1 /0.01ml (100units/ml) SC SCH (23:29)
[2021-06-30] MEDS: MEROPENEM 1GM IVPB 100 ML IV SCH ×3 (01:08→18:04)
[2021-06-30 05:00] VITALS: BP 121/87
[2021-06-30] MEDS: ACCU-CHEK COMFORT CURVE STRIP VI SCH ×4 (05:31→21:56)
[2021-06-30] MEDS: ALPRAZolam 0.5 MG TAB PO PRN ×2 (05:32→20:15)
[2021-06-30] MEDS: InsuLIN REG 1unit/0.01ml Soln (100units/ml) SC SCH ×4 (05:34→21:55)
[2021-06-30] MEDS: ALBUTEROL SULF HFA 90MCG INH 200DOSE IN PRN ×2 (05:54→22:39)
[2021-06-30] MEDS: BUDESONIDE (INHALATION) 180 MCG IH IN SCH ×2 (05:54→22:39)
[2021-06-30 08:29] LABS: Basophils # (auto) 0 10 ^3/uL (0-0.2); Basophils % (auto) 0.2 % (0.0-2.0); Eosinophils # (auto) 0 10 ^3/uL (0-0.8); Eosinophils % (auto) 0.1 % (0.0-7.0); Hematocrit 45.4 % (41.0-53.0); Hemoglobin 15.9 g/dL (13.5-17.5); Lymphocytes # (auto) 1.2 10 ^3/uL (0.4-5.4); Lymphocytes % (auto) 10.7 % (10.0-50.0); Mean Corpuscular Hemoglobin 31.8 pg (28.0-32.0); Mean Corpuscular Volume 90.9 fL (80.0-100.0); Monocytes # (auto) 0.6 10 ^3/uL (0-1.3); Monocytes % (auto) 5.1 % (0.0-12.0); Neutrophils # (auto) 9.4 10 ^3/uL (1.6-8.6); Neutrophils % (auto) 83.9 % (37.0-80.0); Nucleated Red Blood Cells % 0.1 %; Red Blood Cells 4.99 10^6/uL (4.5-5.90); Red Cell Distribution Width 13.7 % (11.8-14.3); White Blood Cell 11.2 10^3/uL (4.4-10.8)
[2021-06-30 08:56] LABS: Calcium 9.1 mg/dL (8.5-10.1); Potassium 4.6 mmol/L (3.5-5.1)
[2021-06-30 09:00] VITALS: BP 102/60
[2021-06-30 09:03] LABS: CRP High Sensitivity 0.02 mg/dL (< 0.3)
[2021-06-30 09:24] LABS: BUN/Creatinine Ratio 44.8
[2021-06-30] MEDS: DexAMETHasone SOD PHOS 10MG/1ML VIAL INJ IV SCH (09:53)
[2021-06-30] MEDS: ZINC SULFATE 220mg CAP or TAB PO SCH (09:53)
[2021-06-30] MEDS: FUROSEMIDE 40 MG/4 ML VIAL IV SCH (09:53)
[2021-06-30] MEDS: ASCORBIC ACID 1,000 MG TAB PO SCH (09:53)
[2021-06-30] MEDS: CHOLECALCIFEROL (VITD3) 2,000 UNIT CAP/TAB PO SCH (09:54)
[2021-06-30] MEDS: ENOXAPARIN SOD 40 MG/0.4 ML SYRINGE SC SCH ×2 (09:54→21:56)
[2021-06-30 13:03] VITALS: BP 103/70
[2021-06-30] MEDS ORDERED: DEXTROSE (50%) 50ML SYRG IV PRN (14:00)
[2021-06-30 17:00] VITALS: BP 121/73
[2021-06-30] MEDS: INSULIN LANTUS (GLARGINE) 1 /0.01ml (100units/ml) SC SCH (21:55)
[2021-06-30 22:03] VITALS: BP 121/73
[2021-07-01] MEDS: MEROPENEM 1GM IVPB 100 ML IV SCH ×3 (00:53→17:04)
[2021-07-01 05:00] VITALS: BP 119/84
[2021-07-01] MEDS: ALPRAZolam 0.5 MG TAB PO PRN ×2 (05:23→20:23)
[2021-07-01] MEDS: ACCU-CHEK COMFORT CURVE STRIP VI SCH ×4 (06:22→21:48)
[2021-07-01] MEDS: InsuLIN REG 1unit/0.01ml Soln (100units/ml) SC SCH ×4 (06:22→21:47)
[2021-07-01] MEDS: ALBUTEROL SULF HFA 90MCG INH 200DOSE IN PRN ×2 (07:13→21:46)
[2021-07-01] MEDS: BUDESONIDE (INHALATION) 180 MCG IH IN SCH ×2 (07:13→21:46)
[2021-07-01] MEDS: ENOXAPARIN SOD 40 MG/0.4 ML SYRINGE SC SCH ×2 (08:43→21:48)
[2021-07-01] MEDS: CHOLECALCIFEROL (VITD3) 2,000 UNIT CAP/TAB PO SCH (08:43)
[2021-07-01] MEDS: ASCORBIC ACID 1,000 MG TAB PO SCH (08:43)
[2021-07-01] MEDS: FUROSEMIDE 40 MG/4 ML VIAL IV SCH (08:43)
[2021-07-01] MEDS: ZINC SULFATE 220mg CAP or TAB PO SCH (08:43)
[2021-07-01] MEDS: DexAMETHasone SOD PHOS 10MG/1ML VIAL INJ IV SCH (08:44)
[2021-07-01 09:00] VITALS: BP 107/64
[2021-07-01 13:00] VITALS: BP 115/54
[2021-07-01 16:10] VITALS: BP 115/69
[2021-07-01] MEDS: INSULIN LANTUS (GLARGINE) 1 /0.01ml (100units/ml) SC SCH (21:47)
[2021-07-01 22:00] VITALS: BP 99/52
[2021-07-02] MEDS: MEROPENEM 1GM IVPB 100 ML IV SCH ×3 (00:31→17:30)
[2021-07-02 03:59] VITALS: BP 99/52
[2021-07-02 05:00] VITALS: BP 139/87
[2021-07-02] MEDS: ACCU-CHEK COMFORT CURVE STRIP VI SCH ×4 (06:45→21:34)
[2021-07-02] MEDS: InsuLIN REG 1unit/0.01ml Soln (100units/ml) SC SCH ×4 (07:00→22:33)
[2021-07-02] MEDS: ALBUTEROL SULF HFA 90MCG INH 200DOSE IN PRN ×3 (07:28→18:50)
[2021-07-02] MEDS: BUDESONIDE (INHALATION) 180 MCG IH IN SCH ×2 (07:29→18:50)
[2021-07-02 09:13] VITALS: BP 96/76
[2021-07-02 09:13] LABS: Basophils # (auto) 0.1 10 ^3/uL (0-0.2); Eosinophils # (auto) 0.1 10 ^3/uL (0-0.8); Eosinophils % (auto) 1.2 % (0.0-7.0); Hematocrit 44.9 % (41.0-53.0); Hemoglobin 15.8 g/dL (13.5-17.5); Lymphocytes # (auto) 1.6 10 ^3/uL (0.4-5.4); Lymphocytes % (auto) 27.2 % (10.0-50.0); Mean Corpuscular Hemoglobin 32.3 pg (28.0-32.0); Mean Corpuscular Hgb Conc. 35.3 g/dL (32.0-36.0); Mean Corpuscular Volume 91.5 fL (80.0-100.0); Monocytes # (auto) 0.5 10 ^3/uL (0-1.3); Monocytes % (auto) 8.5 % (0.0-12.0); Neutrophils # (auto) 3.7 10 ^3/uL (1.6-8.6); Neutrophils % (auto) 62.1 % (37.0-80.0); Nucleated Red Blood Cells % 0.2 %; Red Blood Cells 4.91 10^6/uL (4.5-5.90)
[2021-07-02 09:35] LABS: BUN/Creatinine Ratio 34.2; Calcium 8.4 mg/dL (8.5-10.1); Potassium 3.8 mmol/L (3.5-5.1)
[2021-07-02] MEDS: DexAMETHasone SOD PHOS 10MG/1ML VIAL INJ IV SCH (09:41)
[2021-07-02] MEDS: ENOXAPARIN SOD 40 MG/0.4 ML SYRINGE SC SCH ×2 (09:41→21:34)
[2021-07-02] MEDS: FUROSEMIDE 40 MG/4 ML VIAL IV SCH (09:41)
[2021-07-02] MEDS: CHOLECALCIFEROL (VITD3) 2,000 UNIT CAP/TAB PO SCH (09:41)
[2021-07-02] MEDS: ASCORBIC ACID 1,000 MG TAB PO SCH (09:41)
[2021-07-02] MEDS: ZINC SULFATE 220mg CAP or TAB PO SCH (09:42)
[2021-07-02 12:00] VITALS: BP 102/62
[2021-07-02] MEDS: ALPRAZolam 0.5 MG TAB PO PRN ×2 (14:07→21:35)
[2021-07-02 17:18] VITALS: BP 125/80
[2021-07-02] MEDS: INSULIN LANTUS (GLARGINE) 1 /0.01ml (100units/ml) SC SCH (22:34)
[2021-07-03] MEDS: MEROPENEM 1GM IVPB 100 ML IV SCH ×3 (01:07→17:23)
[2021-07-03] MEDS: ALPRAZolam 0.5 MG TAB PO PRN ×4 (03:36→23:11)
[2021-07-03 05:00] VITALS: BP 126/71
[2021-07-03] MEDS: InsuLIN REG 1unit/0.01ml Soln (100units/ml) SC SCH ×3 (06:12→17:24)
[2021-07-03] MEDS: ACCU-CHEK COMFORT CURVE STRIP VI SCH ×4 (06:13→21:35)
[2021-07-03] MEDS: ALBUTEROL SULF HFA 90MCG INH 200DOSE IN PRN (06:50)
[2021-07-03] MEDS: BUDESONIDE (INHALATION) 180 MCG IH IN SCH ×2 (06:51→20:50)
[2021-07-03 08:26] LABS: Basophils # (auto) 0 10 ^3/uL (0-0.2); Basophils % (auto) 0.4 % (0.0-2.0); Eosinophils # (auto) 0.1 10 ^3/uL (0-0.8); Eosinophils % (auto) 1.1 % (0.0-7.0); Hematocrit 43.2 % (41.0-53.0); Lymphocytes % (auto) 32.3 % (10.0-50.0); Mean Corpuscular Hemoglobin 31.7 pg (28.0-32.0); Mean Corpuscular Hgb Conc. 34.8 g/dL (32.0-36.0); Mean Corpuscular Volume 91.1 fL (80.0-100.0); Monocytes # (auto) 0.6 10 ^3/uL (0-1.3); Monocytes % (auto) 10.6 % (0.0-12.0); Neutrophils # (auto) 3.4 10 ^3/uL (1.6-8.6); Neutrophils % (auto) 55.6 % (37.0-80.0); Nucleated Red Blood Cells % 0.1 %; Red Blood Cells 4.74 10^6/uL (4.5-5.90); Red Cell Distribution Width 13.7 % (11.8-14.3); White Blood Cell 6.1 10^3/uL (4.4-10.8)
[2021-07-03 08:42] LABS: Lactic Acid w/Reflex 2.9 mmol/L (0.4-2.0)
[2021-07-03 08:48] LABS: Albumin 2.8 g/dL (3.4-5.0); Anion Gap 3 (5-15); Blood Urea Nitrogen 27 mg/dL (7-18); Calcium 8.6 mg/dL (8.5-10.1); Carbon Dioxide 30 mmol/L (21-32); Chloride 107 mmol/L (98-107); Glucose 81 mg/dL (74-106); Magnesium 2.8 mg/dL (1.6-2.6); Potassium 4.1 mmol/L (3.5-5.1); Sodium 140 mmol/L (136-145)
[2021-07-03 08:51] LABS: Alanine Aminotransferase 89 U/L (16-61); Alkaline Phosphatase 49 U/L (45-117); Aspartate Aminotransferase 29 U/L (15-37); BUN/Creatinine Ratio 38.6; CRP High Sensitivity < 0.02 mg/dL (< 0.3); GFR African American 150 mL/min; GFR Non-African American 124 mL/min; Total Protein 6.2 g/dL (6.4-8.2)
[2021-07-03 09:00] VITALS: BP 112/58
[2021-07-03] MEDS: DexAMETHasone SOD PHOS 10MG/1ML VIAL INJ IV SCH (10:30)
[2021-07-03] MEDS: ENOXAPARIN SOD 40 MG/0.4 ML SYRINGE SC SCH ×2 (10:30→21:36)
[2021-07-03] MEDS: ASCORBIC ACID 1,000 MG TAB PO SCH (10:30)
[2021-07-03] MEDS: FUROSEMIDE 40 MG/4 ML VIAL IV SCH (10:30)
[2021-07-03] MEDS: CHOLECALCIFEROL (VITD3) 2,000 UNIT CAP/TAB PO SCH (10:30)
[2021-07-03] MEDS: ZINC SULFATE 220mg CAP or TAB PO SCH (10:30)
[2021-07-03] MEDS ORDERED: DEXTROSE (50%) 50ML SYRG IV PRN (11:30)
[2021-07-03 13:00] VITALS: BP 117/59
[2021-07-03 17:00] VITALS: BP 128/81
[2021-07-03] MEDS: INSULIN LANTUS (GLARGINE) 1 /0.01ml (100units/ml) SC SCH (21:37)
[2021-07-03 22:00] VITALS: BP 108/69
[2021-07-03] MEDS ORDERED: InsuLIN REG 1unit/0.01ml Soln (100units/ml) SC SCH (22:00)
[2021-07-04] MEDS: ALBUTEROL SULF HFA 90MCG INH 200DOSE IN PRN ×2 (00:46→11:24)
[2021-07-04] MEDS: MEROPENEM 1GM IVPB 100 ML IV SCH ×3 (01:00→17:00)
[2021-07-04 05:00] VITALS: BP 117/76
[2021-07-04] MEDS: ALPRAZolam 0.5 MG TAB PO PRN ×2 (05:11→11:40)
[2021-07-04] MEDS: InsuLIN REG 1unit/0.01ml Soln (100units/ml) SC SCH ×3 (06:30→17:00)
[2021-07-04] MEDS: ACCU-CHEK COMFORT CURVE STRIP VI SCH ×3 (06:30→17:00)
[2021-07-04 07:00] LABS: Magnesium 2.5 mg/dL (1.6-2.6); Potassium 3.9 mmol/L (3.5-5.1)
[2021-07-04 07:05] LABS: Lactic Acid w/Reflex 2.6 mmol/L (0.4-2.0)
[2021-07-04 09:00] VITALS: BP 127/82
[2021-07-04] MEDS: DexAMETHasone SOD PHOS 10MG/1ML VIAL INJ IV SCH (09:41)
[2021-07-04] MEDS: CHOLECALCIFEROL (VITD3) 2,000 UNIT CAP/TAB PO SCH (09:42)
[2021-07-04] MEDS: FUROSEMIDE 40 MG/4 ML VIAL IV SCH (09:42)
[2021-07-04] MEDS: ZINC SULFATE 220mg CAP or TAB PO SCH (09:42)
[2021-07-04] MEDS: ENOXAPARIN SOD 40 MG/0.4 ML SYRINGE SC SCH (09:43)
[2021-07-04] MEDS: ASCORBIC ACID 1,000 MG TAB PO SCH (09:43)
[2021-07-04] MEDS: BUDESONIDE (INHALATION) 180 MCG IH IN SCH (11:24)
[2021-07-04 13:00] VITALS: BP 107/65
[2021-07-04] MEDS ORDERED: DEX4T PO (13:28)
[2021-07-04] MEDS ORDERED: FAMO20TA10 PO (13:44)
[2021-07-04] MEDS ORDERED: ASPI-378 PO (13:44)
[2021-07-04] MEDS ORDERED: ASCO10003 PO (13:44)
[2021-07-04] MEDS ORDERED: DOXY-286 PO (13:44)
[2021-07-04] MEDS ORDERED: ALBUAER3 IN (13:44)
[2021-07-04] MEDS ORDERED: CHOL20007 PO (13:44)
[2021-07-04] MEDS ORDERED: ZINC220T6 PO (13:44)
[2021-07-04] MEDS ORDERED: BUDE2SUS3 IN (13:44)
[2021-07-04 15:07] LABS: Lactic Acid w/Reflex 4.2 mmol/L (0.4-2.0)
[2021-07-04 17:00] VITALS: BP 114/56
[2021-07-04 17:52] VITALS: BP 114/56
== END 2021-07-04 18:45 | disposition home or self-care (01) | DRG 871 ==
LOC: ER 07:55 → TELE 11:16 → TELE-EAST 15:33 → TELE-CENTR 06-27 20:46 → TELE-EAST 07-03 11:19
PROVIDERS: ADMIT Nurse Practitioner Acute Care; ATTEND Internal Medicine
PROC: XW13325 Transfusion of Convalescent Plasma (Nonautologous) into Peripheral Vein, Percutaneous Approach, New Technology Group 5 (ICD-10-PCS; 2021-06-17)
PROC: XW033E5 Introduction of Remdesivir Anti-infective into Peripheral Vein, Percutaneous Approach, New Technology Group 5 (ICD-10-PCS; principal; 2021-06-19)
DX: A41.89 Other specified sepsis (principal); J12.82 Pneumonia due to coronavirus disease 2019; J96.01 Acute respiratory failure with hypoxia; U07.1 COVID-19; D68.59 Other primary thrombophilia; J98.11 Atelectasis; D69.6 Thrombocytopenia, unspecified; D89.839 Cytokine release syndrome, grade unspecified; E11.9 Type 2 diabetes mellitus without complications; E55.9 Vitamin D deficiency, unspecified; E66.9 Obesity, unspecified; Z68.29 Body mass index [BMI] 29.0-29.9, adult; F41.1 Generalized anxiety disorder; I10 Essential (primary) hypertension; I49.3 Ventricular premature depolarization; E87.6 Hypokalemia; T38.0X5A Adverse effect of glucocorticoids and synthetic analogues, initial encounter; Y92.89 Other specified places as the place of occurrence of the external cause; Z83.3 Family history of diabetes mellitus; Z88.0 Allergy status to penicillin; Z88.8 Allergy status to other drugs, medicaments and biological substances
CPT/HCPCS: 36415; 36430; 36600; 71045; 71275; 80048; 80053; 82306; 82728; 82805; 82962; 83036; 83605; 83615; 83735; 83880; 84132; 84443; 84484; 85025; 85379; 85610; 86141; 86850; 86900; 86901; 87040; 87426; 93005; 93306; 93970; 94640; 96365; 96375; G0378; J1100; J1815; J1956; J2185; J3490

== ENCOUNTER → 2022-03-12 | Outpatient (CLI) | payer MEDICAID ==
[~2022-03-12] MED LIST: ALBUAER3 IN; ALPR0.5T PO; ASCO10003 PO; ASPI-378 PO; ATEN-60 PO; BUDE2SUS3 IN; DEX4T PO; DOXY-286 PO; EMPA1TAB PO; LOSA25TA38 PO; SITA50TA PO; ZINC220T6 PO
== END | disposition home or self-care (01) ==
LOC: Rad HDHVI 08:07
PROVIDERS: ATTEND Internal Medicine
DX: I07.1 Rheumatic tricuspid insufficiency (principal); I10 Essential (primary) hypertension; R07.89 Other chest pain
CPT/HCPCS: 93306

== ENCOUNTER → 2022-04-03 | Outpatient (CLI) | payer MEDICAID ==
[~2022-04-03] MED LIST changes: +ALBUTEROL SULF 2.5 MG/0.5ML(0.5%) NEB SOLN ONE; +SODIUM CHLORIDE 0.9 % NEB SOLN 3ML NEB ONE
== END | disposition home or self-care (01) ==
LOC: RT 07:51
PROVIDERS: ATTEND Internal Medicine Pulmonary Disease
DX: R06.02 Shortness of breath (principal)
CPT/HCPCS: 94060